=== PATIENT | male | born 1945 | race Caucasian/White ===

== ENCOUNTER 2017-06-10 19:28 | Emergency (ER) | payer MEDICARE ==
[~2017-06-10] VITALS: Ht 167.6 cm; Wt 60.4 kg
[~2017-06-10 19:28] MED LIST: ALBU8HFA PO; ASCO-10 PO; ASPI81TA96 PO; ATOR40TA71 PO; CITA10TA9 PO; GEMF600T3 CORPAK; GLUC100017 PO; IBUP-1985 PO; METO25TA6 PO; MULT-933 PO; NIAC500T23 PO; RANI-366 PO
[2017-06-10 19:35] VITALS: BP 129/74
[2017-06-10 20:02] LABS: BASOPHILS # (AUTO) 0.1 X10'3 (0-0.2); BASOPHILS % (AUTO) 1.8 % (0-1); EOSINOPHILS # (AUTO) 0.3 X10'3 (0-0.9); EOSINOPHILS % (AUTO) 5.3 % (0-6); HEMATOCRIT 41.5 % (42.0-52.0); HEMOGLOBIN 14.3 g/dl (14.0-17.9); LYMPHOCYTES # (AUTO) 1.6 X10'3 (1.1-4.8); LYMPHOCYTES % (AUTO) 26.8 % (21-51); MEAN CORPUSCULAR HEMOGLOBIN 34.3 PG (27.0-31.0); MEAN CORPUSCULAR HGB CONC 34.5 % (33.0-36.5); MEAN CORPUSCULAR VOLUME 99.5 FL (78-98); MEAN PLATELET VOLUME 7.8 FL (7.4-10.4); MONOCYTES # (AUTO) 0.6 X10'3 (0-0.9); MONOCYTES % (AUTO) 11.1 % (2-12); NEUTROPHILS # (AUTO) 3.2 X10'3 (1.8-7.7); PLATELET COUNT 229 X10'3 (140-440); RED BLOOD COUNT 4.17 X10'6 (4.70-6.10); RED CELL DISTRIBUTION WIDTH 13.1 % (11.5-14.5); WHITE BLOOD COUNT 5.8 X10'3 (4.5-11.0)
[2017-06-10] MEDS ORDERED: iohexol 350MG/ML 100ml bottle IV ONE (20:09)
[2017-06-10 20:13] LABS: PARTIAL THROMBOPLASTIN TIME 26 SECONDS (22-32); PROTHROMBIN TIME 10.4 SECONDS (9.0-12.0)
[2017-06-10 20:15] LABS: ALANINE AMINOTRANSFERASE 18 U/L (12-78); ALBUMIN 3.6 G/DL (3.4-5.0); ALKALINE PHOSPHATASE 63 IU/L (46-116); ANION GAP 9 (8-16); ASPARTATE AMINO TRANSFERASE 15 U/L (10-37); BILIRUBIN,TOTAL 0.4 MG/DL (0.1-1.0); BLOOD UREA NITROGEN 13 MG/DL (7-18); CALCIUM 9.4 MG/DL (8.5-10.1); CHLORIDE 104 MMOL/L (99-107); GLUCOSE 80 MG/DL (70-104); POTASSIUM 3.9 MMOL/L (3.5-5.1); SODIUM 141 MMOL/L (135-145); TOTAL CARBON DIOXIDE 28.4 MMOL/L (24-32); TOTAL PROTEIN 7.2 G/DL (6.4-8.2); eGFR 74 ML/MIN
[2017-06-10 22:15] LABS: CLARITY,URINE CLEAR (Clear); GLUCOSE, URINE NEGATIVE (Neg); KETONES,URINE NEGATIVE (Neg); LEUKOCYTE ESTERASE ,URINE NEGATIVE (Neg); NITRITES, URINE NEGATIVE (Neg); OCCULT BLOOD,URINE NEGATIVE (Neg); PROTEIN,URINE NEGATIVE (Neg); UROBILINOGEN,URINE 0.2 E.U/dL (0.2-1.0)
[2017-06-10 22:16] LABS: COLOR,URINE STRAW (Yellow); UA COLLECTION TYPE CLN CATCH MIDSTREAM
== END 2017-06-10 23:06 | disposition home or self-care (01) ==
LOC: ER 19:29
DX: I71.4 Abdominal aortic aneurysm, without rupture (principal); K80.20 Calculus of gallbladder without cholecystitis without obstruction; I25.10 Atherosclerotic heart disease of native coronary artery without angina pectoris; I10 Essential (primary) hypertension; I25.2 Old myocardial infarction; J44.9 Chronic obstructive pulmonary disease, unspecified; Z98.890 Other specified postprocedural states; Z79.82 Long term (current) use of aspirin; Z79.899 Other long term (current) drug therapy
CPT/HCPCS: 36415; 71275; 74174; 80053; 81003; 85025; 85610; 85730; 99285; J7030; Q9967

== ENCOUNTER 2018-01-24 22:15 | Inpatient (IN) | payer MEDICARE, MEDICAID ==
[~2018-01-24] VITALS: Ht 167.6 cm; Wt 57.0 kg
[~2018-01-24 22:15] MED LIST changes: -GEMF600T3 CORPAK; +GEMF600T5 CORPAK
[2018-01-24 23:28] LABS: BASOPHILS % (AUTO) 0.5 % (0-1); EOSINOPHILS # (AUTO) 0.1 X10'3 (0-0.9); HEMATOCRIT 40.1 % (42.0-52.0); HEMOGLOBIN 13.8 g/dl (14.0-17.9); LYMPHOCYTES % (AUTO) 18.5 % (21-51); MEAN CORPUSCULAR HEMOGLOBIN 34.1 PG (27.0-31.0); MEAN CORPUSCULAR HGB CONC 34.4 % (33.0-36.5); MEAN CORPUSCULAR VOLUME 99.1 FL (78-98); MEAN PLATELET VOLUME 8.3 FL (7.4-10.4); MONOCYTES # (AUTO) 0.5 X10'3 (0-0.9); MONOCYTES % (AUTO) 10.4 % (2-12); NEUTROPHILS # (AUTO) 3.6 X10'3 (1.8-7.7); NEUTROPHILS % (AUTO) 68.6 % (42-75); PLATELET COUNT 194 X10'3 (140-440); RED BLOOD COUNT 4.04 X10'6 (4.70-6.10); RED CELL DISTRIBUTION WIDTH 13.4 % (11.5-14.5); WHITE BLOOD COUNT 5.2 X10'3 (4.5-11.0)
[2018-01-24 23:38] LABS: ALANINE AMINOTRANSFERASE 26 U/L (12-78); ALBUMIN 3.6 G/DL (3.4-5.0); ALBUMIN/GLOBULIN RATIO 1.1 (1.1-1.5); ALKALINE PHOSPHATASE 82 IU/L (46-116); ANION GAP 9 (8-16); ASPARTATE AMINO TRANSFERASE 26 U/L (10-37); BILIRUBIN,TOTAL 0.3 MG/DL (0.1-1.0); BLOOD UREA NITROGEN 19 MG/DL (7-18); BUN/CREATININE RATIO 17.9 (5.4-32.0); CALCIUM 8.7 MG/DL (8.5-10.1); CHLORIDE 100 MMOL/L (99-107); CREATININE 1.06 MG/DL (0.60-1.10); GLUCOSE 105 MG/DL (70-104); POTASSIUM 3.1 MMOL/L (3.5-5.1); SODIUM 140 MMOL/L (135-145); TOTAL CARBON DIOXIDE 30.8 MMOL/L (24-32); TOTAL PROTEIN 6.9 G/DL (6.4-8.2); eGFR 69 ML/MIN
[2018-01-24 23:59] LABS: PARTIAL THROMBOPLASTIN TIME 29 SECONDS (22-32); PROTHROMBIN TIME 10.5 SECONDS (9.0-12.0)
[2018-01-25] VITALS (13 sets, daily range): BP systolic 114–144; BP diastolic 60–75
[2018-01-25] MEDS ORDERED: aspirin 325mg tablet PO ONE (00:30)
[2018-01-25] MEDS ORDERED: POTA10TA19 PO (00:57)
[2018-01-25] MEDS ORDERED: CHOL400T14 PO (00:57)
[2018-01-25] MEDS ORDERED: VITA100D6 PO (00:57)
[2018-01-25] MEDS ORDERED: IBUP-1984 PO (00:57)
[2018-01-25] MEDS ORDERED: ASPI-1265 PO (00:57)
[2018-01-25] MEDS ORDERED: OMEG1CAP13 PO (00:57)
[2018-01-25] MEDS ORDERED: ASCO500C15 PO (00:57)
[2018-01-25] MEDS ORDERED: TURM500C7 (00:57)
[2018-01-25] MEDS ORDERED: albuterol 2.5 MG/3 ML nebule NEB PRN (01:25)
[2018-01-25] MEDS ORDERED: acetaminophen 325mg tablet PO PRN (01:25)
[2018-01-25] MEDS ORDERED: mag hydrox/Alum hydrox/simeth 30ml oral suspension PO PRN (01:25)
[2018-01-25] MEDS ORDERED: morphine 2 MG/ML inj. syringe IV PRN ×2 (01:25)
[2018-01-25] MEDS ORDERED: nitroGLYCERIN 1gm ointment UD TP ONE (01:25)
[2018-01-25] MEDS ORDERED: ondansetron/PF 4mg/2ml inj IV PRN (01:25)
[2018-01-25] MEDS ORDERED: magnesium hydroxide 30ml (MOM) UD suspension PO PRN (01:25)
[2018-01-25] MEDS ORDERED: heparin, porcine 5000 units/ml vial SQ SCH (08:00)
[2018-01-25] MEDS ORDERED: famotidine 20mg tablet PO SCH (08:00)
[2018-01-25] MEDS ORDERED: metoprolol tartrate 25mg tablet PO SCH (08:00)
[2018-01-25] MEDS ORDERED: atorvastatin 20mg tablet PO SCH (08:00)
[2018-01-25] MEDS ORDERED: aspirin 325mg tablet PO SCH (08:00)
[2018-01-25] MEDS ORDERED: CITALOpram 10mg tablet PO SCH (08:00)
[2018-01-25] MEDS ORDERED: metoprolol tartrate 1mg/ml inj IV PRN (09:15)
[2018-01-25] MEDS ORDERED: aminophylline 250mg/10ml inj. IV PRN (09:15)
[2018-01-25] MEDS ORDERED: nitroGLYCERIN 0.4mg SUBLingual tab SL PRN (09:15)
[2018-01-25] MEDS ORDERED: regadenoson 0.4mg/5ml syringe IV PRN (09:15)
[2018-01-25] MEDS ORDERED: potassium Cl 20 mEq SR tablet PO STA (12:06)
[2018-01-25 12:46] LABS: ALBUMIN 3.2 G/DL (3.4-5.0); ANION GAP 9 (8-16); BLOOD UREA NITROGEN 18 MG/DL (7-18); CALCIUM 8.5 MG/DL (8.5-10.1); CHLORIDE 103 MMOL/L (99-107); CREATININE 0.82 MG/DL (0.60-1.10); GLUCOSE 91 MG/DL (70-104); POTASSIUM 3.4 MMOL/L (3.5-5.1); SODIUM 139 MMOL/L (135-145); TOTAL CARBON DIOXIDE 27.3 MMOL/L (24-32); eGFR > 90 ML/MIN
[2018-01-25] MEDS ORDERED: aminophylline inj. 10 ML IV ONE (15:02)
[2018-01-25] MEDS ORDERED: regadenoson 0.4mg/5ml syringe IV ONE (15:02)
== END 2018-01-25 18:20 | disposition home or self-care (01) | DRG 303 ==
LOC: ER 22:16 → ED HOLD 01-25 01:22 → PCU 3S 01-25 07:50
PROVIDERS: ADMIT Internal Medicine; ATTEND Family Medicine
PROC: 4A02XM4 Measurement of Cardiac Total Activity, External Approach (ICD-10-PCS; principal; 2018-01-25)
PROC: 3E033HZ Introduction of Radioactive Substance into Peripheral Vein, Percutaneous Approach (ICD-10-PCS; 2018-01-25)
DX: I25.110 Atherosclerotic heart disease of native coronary artery with unstable angina pectoris (principal); I10 Essential (primary) hypertension; E78.00 Pure hypercholesterolemia, unspecified; J44.9 Chronic obstructive pulmonary disease, unspecified; M19.90 Unspecified osteoarthritis, unspecified site; I25.2 Old myocardial infarction; Z90.49 Acquired absence of other specified parts of digestive tract; Z95.1 Presence of aortocoronary bypass graft; Z79.899 Other long term (current) drug therapy; Z79.82 Long term (current) use of aspirin; Z87.11 Personal history of peptic ulcer disease; Z87.891 Personal history of nicotine dependence
CPT/HCPCS: 36415; 71045; 78452; 80048; 80053; 84484; 85025; 85610; 85730; 87070; 93005; 93017; 93306; 99285; A9500; G0378; J0280; J1644

== ENCOUNTER 2018-01-31 16:03 | Inpatient (IN) | payer MEDICARE, MEDICAID ==
[~2018-01-31] VITALS: Ht 167.6 cm; Wt 62.3 kg
[~2018-01-31 16:03] MED LIST changes: -ASCO-10 PO; +ASCO500C15 PO; +ASPI-1265 PO; -ASPI81TA96 PO; +CHOL400T14 PO; -GEMF600T5 CORPAK; +GEMF600T5 PO; +IBUP-1984 PO; -IBUP-1985 PO; +OMEG1CAP13 PO; +POTA10TA19 PO; +TURM500C7; +VITA100D6 PO
[2018-01-31 17:00] LABS: BASOPHILS % (AUTO) 0.5 % (0-1); EOSINOPHILS # (AUTO) 0.2 X10'3 (0-0.9); HEMATOCRIT 43.9 % (42.0-52.0); HEMOGLOBIN 14.9 g/dl (14.0-17.9); LYMPHOCYTES # (AUTO) 0.7 X10'3 (1.1-4.8); LYMPHOCYTES % (AUTO) 9.6 % (21-51); MEAN CORPUSCULAR HEMOGLOBIN 33.5 PG (27.0-31.0); MEAN CORPUSCULAR VOLUME 98.5 FL (78-98); MEAN PLATELET VOLUME 8.2 FL (7.4-10.4); MONOCYTES # (AUTO) 0.3 X10'3 (0-0.9); MONOCYTES % (AUTO) 4.4 % (2-12); NEUTROPHILS # (AUTO) 5.6 X10'3 (1.8-7.7); NEUTROPHILS % (AUTO) 82.5 % (42-75); PLATELET COUNT 253 X10'3 (140-440); RED BLOOD COUNT 4.46 X10'6 (4.70-6.10); RED CELL DISTRIBUTION WIDTH 13.4 % (11.5-14.5); WHITE BLOOD COUNT 6.8 X10'3 (4.5-11.0)
[2018-01-31 17:13] LABS: PARTIAL THROMBOPLASTIN TIME 25 SECONDS (22-32); PROTHROMBIN TIME 10.5 SECONDS (9.0-12.0)
[2018-01-31 17:17] LABS: ALANINE AMINOTRANSFERASE 22 U/L (12-78); ALBUMIN 3.7 G/DL (3.4-5.0); ALBUMIN/GLOBULIN RATIO 0.9 (1.1-1.5); ALKALINE PHOSPHATASE 79 IU/L (46-116); ANION GAP 7 (8-16); ASPARTATE AMINO TRANSFERASE 14 U/L (10-37); BILIRUBIN,TOTAL 0.5 MG/DL (0.1-1.0); BLOOD UREA NITROGEN 16 MG/DL (7-18); BUN/CREATININE RATIO 16.7 (5.4-32.0); CALCIUM 9.2 MG/DL (8.5-10.1); CHLORIDE 100 MMOL/L (99-107); CREATININE 0.96 MG/DL (0.60-1.10); GLUCOSE 165 MG/DL (70-104); POTASSIUM 3.3 MMOL/L (3.5-5.1); SODIUM 139 MMOL/L (135-145); TOTAL CARBON DIOXIDE 31.6 MMOL/L (24-32); TOTAL PROTEIN 7.7 G/DL (6.4-8.2); eGFR 77 ML/MIN
[2018-01-31] MEDS ORDERED: nitroGLYCERIN 0.4mg SUBLingual tab SL PRN (18:35)
[2018-01-31] MEDS ORDERED: aspirin 325mg tablet PO ONE (18:35)
[2018-01-31] MEDS ORDERED: heparin 10,000 units/1 ML INJ IV PRN ×3 (18:40→21:50)
[2018-01-31] MEDS ORDERED: heparin 10,000 units/1 ML INJ IV ONE ×2 (18:40→22:05)
[2018-01-31] MEDS ORDERED: heparin 25,000 UNIT/250ml bag 250 ML IV SCH ×2 (18:40→21:46)
[2018-01-31] MEDS ORDERED: nitroGLYCERIN 1gm ointment UD TP ONE (18:55)
[2018-01-31] MEDS: heparin 25,000 UNIT/250ml bag 250 ML IV SCH (19:10)
[2018-01-31 20:53] LABS: BASOPHILS % (AUTO) 0.5 % (0-1); EOSINOPHILS # (AUTO) 0.2 X10'3 (0-0.9); EOSINOPHILS % (AUTO) 2.9 % (0-6); HEMOGLOBIN 13.9 g/dl (14.0-17.9); LYMPHOCYTES # (AUTO) 1.2 X10'3 (1.1-4.8); LYMPHOCYTES % (AUTO) 15.9 % (21-51); MEAN CORPUSCULAR HEMOGLOBIN 33.4 PG (27.0-31.0); MEAN CORPUSCULAR VOLUME 98.4 FL (78-98); MEAN PLATELET VOLUME 8.7 FL (7.4-10.4); MONOCYTES # (AUTO) 0.5 X10'3 (0-0.9); MONOCYTES % (AUTO) 6.8 % (2-12); NEUTROPHILS # (AUTO) 5.5 X10'3 (1.8-7.7); NEUTROPHILS % (AUTO) 73.9 % (42-75); PLATELET COUNT 248 X10'3 (140-440); RED BLOOD COUNT 4.17 X10'6 (4.70-6.10); RED CELL DISTRIBUTION WIDTH 13.1 % (11.5-14.5); WHITE BLOOD COUNT 7.4 X10'3 (4.5-11.0)
[2018-01-31] MEDS ORDERED: temazepam 15mg capsule PO PRN (21:00)
[2018-01-31] MEDS ORDERED: normal saline 1000ml 1,000 ML IV SCH (21:46)
[2018-01-31] MEDS ORDERED: HYDROcodone/acetaminophen 10/325mg tab PO PRN (21:50)
[2018-01-31] MEDS ORDERED: HYDROmorphone 1 mg/ml syringe IV PRN (21:50)
[2018-01-31] MEDS ORDERED: magnesium hydroxide 30ml (MOM) UD suspension PO PRN (21:50)
[2018-01-31] MEDS ORDERED: mag hydrox/Alum hydrox/simeth 30ml oral suspension PO PRN (21:50)
[2018-01-31] MEDS ORDERED: acetaminophen 325mg tablet PO PRN ×2 (21:50)
[2018-01-31] MEDS ORDERED: bisacodyl 10mg suppository rectal RC PRN (21:50)
[2018-01-31] MEDS ORDERED: diphenhydrAMINE 50 mg/ml inj IV PRN (21:50)
[2018-01-31] MEDS ORDERED: potassium Cl 40MEQ/NS 500ml 500 ML IV PRN ×2 (21:50)
[2018-01-31] MEDS ORDERED: morphine 2 MG/ML inj. syringe IV PRN (21:50)
[2018-01-31] MEDS ORDERED: diphenhydrAMINE 25mg capsule PO PRN (21:50)
[2018-01-31] MEDS ORDERED: potassium Cl 20 mEq SR tablet PO PRN ×2 (21:50)
[2018-01-31] MEDS ORDERED: metoclopramide 5 mg/ml inj IV PRN (21:50)
[2018-01-31] MEDS ORDERED: ondansetron/PF 4mg/2ml inj IV PRN (21:50)
[2018-01-31 22:48] LABS: BASOPHILS % (AUTO) 0.7 % (0-1); EOSINOPHILS # (AUTO) 0.2 X10'3 (0-0.9); EOSINOPHILS % (AUTO) 2.9 % (0-6); HEMATOCRIT 39.9 % (42.0-52.0); HEMOGLOBIN 13.5 g/dl (14.0-17.9); LYMPHOCYTES # (AUTO) 1.4 X10'3 (1.1-4.8); LYMPHOCYTES % (AUTO) 21.1 % (21-51); MEAN CORPUSCULAR HEMOGLOBIN 33.5 PG (27.0-31.0); MEAN CORPUSCULAR HGB CONC 33.9 % (33.0-36.5); MEAN CORPUSCULAR VOLUME 98.8 FL (78-98); MEAN PLATELET VOLUME 8.3 FL (7.4-10.4); MONOCYTES # (AUTO) 0.5 X10'3 (0-0.9); MONOCYTES % (AUTO) 6.9 % (2-12); NEUTROPHILS # (AUTO) 4.5 X10'3 (1.8-7.7); NEUTROPHILS % (AUTO) 68.4 % (42-75); PLATELET COUNT 232 X10'3 (140-440); RED BLOOD COUNT 4.04 X10'6 (4.70-6.10); RED CELL DISTRIBUTION WIDTH 12.9 % (11.5-14.5); WHITE BLOOD COUNT 6.5 X10'3 (4.5-11.0)
[2018-01-31 22:51] LABS: HEMOGLOBIN A1C 5.8 % (4.5-6.2)
[2018-01-31 23:03] LABS: MAGNESIUM 1.7 MG/DL (1.5-2.4)
[2018-01-31 23:07] LABS: INR 1.1 INR; PARTIAL THROMBOPLASTIN TIME 64 SECONDS (22-32); PROTHROMBIN TIME 10.8 SECONDS (9.0-12.0)
[2018-02-01] VITALS (8 sets, daily range): BP systolic 99–133; BP diastolic 55–95
[2018-02-01 07:39] LABS: BASOPHILS % (AUTO) 0.5 % (0-1); EOSINOPHILS # (AUTO) 0.2 X10'3 (0-0.9); EOSINOPHILS % (AUTO) 2.8 % (0-6); HEMATOCRIT 38.3 % (42.0-52.0); LYMPHOCYTES % (AUTO) 17.5 % (21-51); MEAN CORPUSCULAR HEMOGLOBIN 33.6 PG (27.0-31.0); MEAN CORPUSCULAR VOLUME 98.7 FL (78-98); MONOCYTES # (AUTO) 0.4 X10'3 (0-0.9); MONOCYTES % (AUTO) 6.9 % (2-12); NEUTROPHILS # (AUTO) 4.3 X10'3 (1.8-7.7); NEUTROPHILS % (AUTO) 72.3 % (42-75); PLATELET COUNT 230 X10'3 (140-440); RED BLOOD COUNT 3.88 X10'6 (4.70-6.10); RED CELL DISTRIBUTION WIDTH 13.2 % (11.5-14.5); WHITE BLOOD COUNT 5.9 X10'3 (4.5-11.0)
[2018-02-01 07:57] LABS: ALANINE AMINOTRANSFERASE 18 U/L (12-78); ALBUMIN/GLOBULIN RATIO 0.9 (1.1-1.5); ALKALINE PHOSPHATASE 62 IU/L (46-116); ANION GAP 9 (8-16); ASPARTATE AMINO TRANSFERASE 13 U/L (10-37); BILIRUBIN,TOTAL 0.4 MG/DL (0.1-1.0); BLOOD UREA NITROGEN 19 MG/DL (7-18); BUN/CREATININE RATIO 24.7 (5.4-32.0); CALCIUM 8.2 MG/DL (8.5-10.1); CHLORIDE 105 MMOL/L (99-107); CHOL/HDL RATIO 3.7 (0.00-4.99); CHOLESTEROL 123 MG/DL (0-200); CREATININE 0.77 MG/DL (0.60-1.10); GLUCOSE 101 MG/DL (70-104); HDL CHOLESTEROL 33 MG/DL (35-60); LDL CHOLESTEROL 74 MG/DL (50-100); POTASSIUM 3.3 MMOL/L (3.5-5.1); SODIUM 141 MMOL/L (135-145); TOTAL CARBON DIOXIDE 27.4 MMOL/L (24-32); TOTAL PROTEIN 6.2 G/DL (6.4-8.2); TRIGLYCERIDES 93 MG/DL (20-135); eGFR > 90 ML/MIN
[2018-02-01] MEDS: metoprolol tartrate 25mg tablet PO SCH ×2 (08:00→20:00)
[2018-02-01] MEDS: cholecalciferol (vitamin D) 400 unit tablet PO SCH (08:00)
[2018-02-01] MEDS: K and/or MAG REPLACEMENT MC SCH (08:00)
[2018-02-01] MEDS: heparin 25,000 UNIT/250ml bag 250 ML IV SCH (08:26)
[2018-02-01] MEDS: multivitamins, therapeutics tablet PO SCH (08:41)
[2018-02-01] MEDS: aspirin 81mg tab.chew PO SCH (08:42)
[2018-02-01] MEDS: ascorbic acid 500mg tablet PO SCH (08:42)
[2018-02-01] MEDS: atorvastatin 20mg tablet PO SCH (08:42)
[2018-02-01] MEDS: famotidine 20mg tablet PO SCH ×2 (08:43→20:59)
[2018-02-01] MEDS: lisinopril 10 MG tablet PO SCH (08:44)
[2018-02-01] MEDS: docusate sod 100mg capsule PO SCH ×2 (08:44→20:59)
[2018-02-01] MEDS: CITALOpram 10mg tablet PO SCH (10:26)
[2018-02-01] MEDS: gemfibrozil 600mg tablet CORPAK SCH ×2 (10:53→20:59)
[2018-02-01] MEDS: OMEGA-3/DHA/EPA/FISH OIL 1 EACH CAPSULE.DR PO SCH ×2 (10:54→20:59)
[2018-02-01] MEDS: nitroGLYCERIN 0.1mg/hour patch TD SCH (10:56)
[2018-02-01] MEDS ORDERED: iohexol 350 MG/ML 50ML vial IV ONE ×3 (13:30→14:44)
[2018-02-01] MEDS ORDERED: midazolam 2 mg/2 ml injection ONE (13:30)
[2018-02-01] MEDS ORDERED: LIDOcaine 1% (10mg/ml)w/preservative injection 20ml MDV ONE (13:30)
[2018-02-01] MEDS ORDERED: iohexol 350MG/ML 100ml bottle IV ONE (13:30)
[2018-02-01] MEDS ORDERED: fentaNYL/PF 50MCG/1 ML 2ML syringe ONE (13:30)
[2018-02-01] MEDS ORDERED: nitroGLYCERIN-Tridil 50MG/D5W 250 ML IV ONE (14:14)
[2018-02-01] MEDS ORDERED: verapamil 2.5 mg/ml inj IV ONE (14:15)
[2018-02-01] MEDS ORDERED: heparin 1,000unit/ml 10ml vial 10 ML ONE (14:15)
[2018-02-01] MEDS ORDERED: HYDROcodone/acetaminophen 5mg/325mg tablet PO PRN (20:30)
[2018-02-01] MEDS ORDERED: proCHLORperazine 10 MG/2 ml inj IV PRN (20:35)
[2018-02-01] MEDS ORDERED: OXAZEpam 15mg capsule PO PRN (20:35)
[2018-02-01] MEDS: enoxaparin 40mg/0.4ml syringe SQ SCH (20:58)
[2018-02-01] MEDS: vitamin E 400 unit capsule PO SCH (20:59)
[2018-02-02] VITALS (14 sets, daily range): BP systolic 82–146; BP diastolic 25–76
[2018-02-02] MEDS: nitroGLYCERIN 0.4mg SUBLingual tab SL PRN ×6 (02:24→21:21)
[2018-02-02 05:10] LABS: BASOPHILS # (AUTO) 0.1 X10'3 (0-0.2); BASOPHILS % (AUTO) 0.6 % (0-1); EOSINOPHILS # (AUTO) 0.2 X10'3 (0-0.9); EOSINOPHILS % (AUTO) 2.2 % (0-6); HEMATOCRIT 36.8 % (42.0-52.0); HEMOGLOBIN 12.6 g/dl (14.0-17.9); LYMPHOCYTES # (AUTO) 0.8 X10'3 (1.1-4.8); LYMPHOCYTES % (AUTO) 8.9 % (21-51); MEAN CORPUSCULAR HEMOGLOBIN 33.7 PG (27.0-31.0); MEAN CORPUSCULAR HGB CONC 34.3 % (33.0-36.5); MEAN CORPUSCULAR VOLUME 98.1 FL (78-98); MONOCYTES # (AUTO) 0.6 X10'3 (0-0.9); MONOCYTES % (AUTO) 7.1 % (2-12); NEUTROPHILS % (AUTO) 81.2 % (42-75); PLATELET COUNT 235 X10'3 (140-440); RED BLOOD COUNT 3.75 X10'6 (4.70-6.10); RED CELL DISTRIBUTION WIDTH 13.2 % (11.5-14.5); WHITE BLOOD COUNT 8.6 X10'3 (4.5-11.0)
[2018-02-02 05:25] LABS: ALANINE AMINOTRANSFERASE 16 U/L (12-78); ALBUMIN 2.9 G/DL (3.4-5.0); ALKALINE PHOSPHATASE 67 IU/L (46-116); ANION GAP 10 (8-16); ASPARTATE AMINO TRANSFERASE 16 U/L (10-37); BILIRUBIN,TOTAL 0.5 MG/DL (0.1-1.0); BLOOD UREA NITROGEN 13 MG/DL (7-18); BUN/CREATININE RATIO 17.8 (5.4-32.0); CALCIUM 8.3 MG/DL (8.5-10.1); CHLORIDE 104 MMOL/L (99-107); CREATININE 0.73 MG/DL (0.60-1.10); GLUCOSE 87 MG/DL (70-104); POTASSIUM 3.3 MMOL/L (3.5-5.1); SODIUM 140 MMOL/L (135-145); TOTAL CARBON DIOXIDE 26.5 MMOL/L (24-32); TOTAL PROTEIN 5.9 G/DL (6.4-8.2); eGFR > 90 ML/MIN
[2018-02-02] MEDS: ascorbic acid 500mg tablet PO SCH (07:30)
[2018-02-02] MEDS: CITALOpram 10mg tablet PO SCH (07:31)
[2018-02-02] MEDS: cholecalciferol (vitamin D) 400 unit tablet PO SCH (07:32)
[2018-02-02] MEDS: atorvastatin 20mg tablet PO SCH (07:33)
[2018-02-02] MEDS: enoxaparin 40mg/0.4ml syringe SQ SCH (07:34)
[2018-02-02] MEDS: gemfibrozil 600mg tablet CORPAK SCH ×2 (07:35→20:54)
[2018-02-02] MEDS: docusate sod 100mg capsule PO SCH ×2 (07:35→20:54)
[2018-02-02] MEDS: famotidine 20mg tablet PO SCH ×2 (07:35→20:54)
[2018-02-02] MEDS: OMEGA-3/DHA/EPA/FISH OIL 1 EACH CAPSULE.DR PO SCH ×2 (07:35→20:54)
[2018-02-02] MEDS: aspirin 81mg tab.chew PO SCH (07:35)
[2018-02-02] MEDS: nitroGLYCERIN 0.1mg/hour patch TD SCH (07:36)
[2018-02-02] MEDS: lisinopril 10 MG tablet PO SCH (07:40)
[2018-02-02] MEDS: multivitamins, therapeutics tablet PO SCH (08:00)
[2018-02-02] MEDS: metoprolol tartrate 25mg tablet PO SCH ×2 (08:00→20:54)
[2018-02-02] MEDS: K and/or MAG REPLACEMENT MC SCH (08:00)
[2018-02-02] MEDS ORDERED: heparin 25,000 UNIT/250ml bag 250 ML IV SCH (14:30)
[2018-02-02] MEDS ORDERED: heparin 10,000 units/1 ML INJ IV PRN (14:30)
[2018-02-02] MEDS ORDERED: normal saline 1000ml 1,000 ML IV SCH (14:30)
[2018-02-02] MEDS: potassium Cl 20mEq in NS 1,000 ML IV SCH (20:00)
[2018-02-02] MEDS: vitamin E 400 unit capsule PO SCH (20:54)
[2018-02-03] VITALS (24 sets, daily range): BP systolic 91–142; BP diastolic 48–74
[2018-02-03 02:10] LABS: ALANINE AMINOTRANSFERASE 18 U/L (12-78); ALBUMIN 2.9 G/DL (3.4-5.0); ALBUMIN/GLOBULIN RATIO 0.9 (1.1-1.5); ALKALINE PHOSPHATASE 73 IU/L (46-116); ANION GAP 10 (8-16); ASPARTATE AMINO TRANSFERASE 16 U/L (10-37); BILIRUBIN,TOTAL 0.5 MG/DL (0.1-1.0); BLOOD UREA NITROGEN 12 MG/DL (7-18); BUN/CREATININE RATIO 16.7 (5.4-32.0); CALCIUM 8.1 MG/DL (8.5-10.1); CHLORIDE 102 MMOL/L (99-107); CREATININE 0.72 MG/DL (0.60-1.10); GLUCOSE 82 MG/DL (70-104); POTASSIUM 3.6 MMOL/L (3.5-5.1); SODIUM 138 MMOL/L (135-145); TOTAL CARBON DIOXIDE 26.5 MMOL/L (24-32); TOTAL PROTEIN 6.1 G/DL (6.4-8.2); eGFR > 90 ML/MIN
[2018-02-03 02:51] LABS: BASOPHILS % (AUTO) 0.7 % (0-1); EOSINOPHILS # (AUTO) 0.1 X10'3 (0-0.9); EOSINOPHILS % (AUTO) 1.7 % (0-6); HEMATOCRIT 36.8 % (42.0-52.0); HEMOGLOBIN 12.4 g/dl (14.0-17.9); LYMPHOCYTES # (AUTO) 0.7 X10'3 (1.1-4.8); MEAN CORPUSCULAR HEMOGLOBIN 33.3 PG (27.0-31.0); MEAN CORPUSCULAR HGB CONC 33.6 % (33.0-36.5); MEAN CORPUSCULAR VOLUME 99.2 FL (78-98); MEAN PLATELET VOLUME 8.7 FL (7.4-10.4); MONOCYTES # (AUTO) 0.5 X10'3 (0-0.9); MONOCYTES % (AUTO) 7.2 % (2-12); NEUTROPHILS # (AUTO) 5.6 X10'3 (1.8-7.7); NEUTROPHILS % (AUTO) 80.4 % (42-75); PLATELET COUNT 233 X10'3 (140-440); RED BLOOD COUNT 3.71 X10'6 (4.70-6.10); RED CELL DISTRIBUTION WIDTH 13.3 % (11.5-14.5)
[2018-02-03] MEDS: nitroGLYCERIN 0.4mg SUBLingual tab SL PRN ×2 (06:01→06:10)
[2018-02-03] MEDS: metoprolol tartrate 25mg tablet PO SCH ×2 (07:09→20:00)
[2018-02-03] MEDS: famotidine 20mg tablet PO SCH ×2 (07:09→20:38)
[2018-02-03] MEDS: atorvastatin 20mg tablet PO SCH (07:09)
[2018-02-03] MEDS: aspirin 81mg tab.chew PO SCH (07:10)
[2018-02-03] MEDS: lisinopril 10 MG tablet PO SCH (07:10)
[2018-02-03] MEDS: potassium Cl 20mEq in NS 1,000 ML IV SCH ×2 (07:30→19:40)
[2018-02-03] MEDS: ascorbic acid 500mg tablet PO SCH (08:00)
[2018-02-03] MEDS: K and/or MAG REPLACEMENT MC SCH (08:00)
[2018-02-03] MEDS: docusate sod 100mg capsule PO SCH ×2 (08:00→20:00)
[2018-02-03] MEDS: CITALOpram 10mg tablet PO SCH (08:00)
[2018-02-03] MEDS: cholecalciferol (vitamin D) 400 unit tablet PO SCH (08:00)
[2018-02-03] MEDS: gemfibrozil 600mg tablet CORPAK SCH ×2 (08:00→20:36)
[2018-02-03] MEDS: nitroGLYCERIN 0.1mg/hour patch TD SCH (08:00)
[2018-02-03] MEDS: OMEGA-3/DHA/EPA/FISH OIL 1 EACH CAPSULE.DR PO SCH ×2 (08:00→20:36)
[2018-02-03] MEDS: multivitamins, therapeutics tablet PO SCH (08:00)
[2018-02-03] MEDS ORDERED: nitroGLYCERIN-Tridil 50MG/D5W 250 ML IV ONE (08:37)
[2018-02-03] MEDS ORDERED: fentaNYL/PF 50MCG/1 ML 2ML syringe ONE (08:37)
[2018-02-03] MEDS ORDERED: midazolam 2 mg/2 ml injection ONE (08:37)
[2018-02-03] MEDS ORDERED: verapamil 2.5 mg/ml inj IV ONE (08:37)
[2018-02-03] MEDS ORDERED: iohexol 350 MG/1 ML 200ml bottle ONE (08:38)
[2018-02-03] MEDS ORDERED: heparin 1,000unit/ml 10ml vial 10 ML ONE ×2 (08:38→10:46)
[2018-02-03] MEDS ORDERED: LIDOcaine 1% (10mg/ml)w/preservative injection 20ml MDV ONE (09:17)
[2018-02-03] MEDS ORDERED: heparin 1,000 UNITS/NS 500ml 500 ML ONE (10:19)
[2018-02-03] MEDS ORDERED: iohexol 350 MG/ML 50ML vial IV ONE ×2 (11:10→11:27)
[2018-02-03] MEDS ORDERED: iohexol 350MG/ML 100ml bottle IV ONE (11:27)
[2018-02-03] MEDS ORDERED: clopidogrel 300mg tablet ONE (11:44)
[2018-02-03] MEDS ORDERED: normal saline 1000ml 1,000 ML IV SCH (13:10)
[2018-02-03] MEDS ORDERED: cyclobenzaprine 10mg tablet PO PRN (13:25)
[2018-02-03] MEDS ORDERED: HYDROcodone/acetaminophen 10/325mg tab PO SCH (13:25)
[2018-02-03] MEDS ORDERED: HYDROcodone/acetaminophen 10/325mg tab PO PRN ×3 (13:25→14:06)
[2018-02-03] MEDS: vitamin E 400 unit capsule PO SCH (20:35)
[2018-02-03] MEDS ORDERED: magnesium hydroxide 30ml (MOM) UD suspension PO SCH (21:00)
[2018-02-04] VITALS (12 sets, daily range): BP systolic 83–142; BP diastolic 48–67
[2018-02-04 04:21] LABS: BASOPHILS % (AUTO) 0.3 % (0-1); EOSINOPHILS # (AUTO) 0.1 X10'3 (0-0.9); EOSINOPHILS % (AUTO) 1.2 % (0-6); HEMATOCRIT 35.2 % (42.0-52.0); HEMOGLOBIN 11.9 g/dl (14.0-17.9); LYMPHOCYTES # (AUTO) 0.6 X10'3 (1.1-4.8); LYMPHOCYTES % (AUTO) 9.6 % (21-51); MEAN CORPUSCULAR HEMOGLOBIN 33.3 PG (27.0-31.0); MEAN CORPUSCULAR HGB CONC 33.8 % (33.0-36.5); MEAN CORPUSCULAR VOLUME 98.6 FL (78-98); MEAN PLATELET VOLUME 8.2 FL (7.4-10.4); MONOCYTES # (AUTO) 0.7 X10'3 (0-0.9); MONOCYTES % (AUTO) 11.8 % (2-12); NEUTROPHILS # (AUTO) 4.8 X10'3 (1.8-7.7); NEUTROPHILS % (AUTO) 77.1 % (42-75); PLATELET COUNT 200 X10'3 (140-440); RED BLOOD COUNT 3.57 X10'6 (4.70-6.10); RED CELL DISTRIBUTION WIDTH 13.3 % (11.5-14.5); WHITE BLOOD COUNT 6.3 X10'3 (4.5-11.0)
[2018-02-04 04:32] LABS: ALANINE AMINOTRANSFERASE 21 U/L (12-78); ALBUMIN 2.6 G/DL (3.4-5.0); ALBUMIN/GLOBULIN RATIO 0.8 (1.1-1.5); ALKALINE PHOSPHATASE 66 IU/L (46-116); ANION GAP 9 (8-16); ASPARTATE AMINO TRANSFERASE 23 U/L (10-37); BILIRUBIN,TOTAL 0.3 MG/DL (0.1-1.0); BLOOD UREA NITROGEN 12 MG/DL (7-18); BUN/CREATININE RATIO 15.2 (5.4-32.0); CHLORIDE 102 MMOL/L (99-107); CREATININE 0.79 MG/DL (0.60-1.10); GLUCOSE 81 MG/DL (70-104); POTASSIUM 3.5 MMOL/L (3.5-5.1); SODIUM 136 MMOL/L (135-145); TOTAL CARBON DIOXIDE 25.3 MMOL/L (24-32); TOTAL PROTEIN 5.7 G/DL (6.4-8.2); eGFR > 90 ML/MIN
[2018-02-04] MEDS: metoprolol tartrate 25mg tablet PO SCH (07:57)
[2018-02-04] MEDS: cholecalciferol (vitamin D) 400 unit tablet PO SCH (07:57)
[2018-02-04] MEDS: aspirin 81mg tab.chew PO SCH (07:57)
[2018-02-04] MEDS: OMEGA-3/DHA/EPA/FISH OIL 1 EACH CAPSULE.DR PO SCH (07:58)
[2018-02-04] MEDS: docusate sod 100mg capsule PO SCH (07:58)
[2018-02-04] MEDS: famotidine 20mg tablet PO SCH (07:58)
[2018-02-04] MEDS: gemfibrozil 600mg tablet CORPAK SCH (07:58)
[2018-02-04] MEDS: multivitamins, therapeutics tablet PO SCH (07:58)
[2018-02-04] MEDS: lisinopril 10 MG tablet PO SCH (07:59)
[2018-02-04] MEDS: CITALOpram 10mg tablet PO SCH (07:59)
[2018-02-04] MEDS: ascorbic acid 500mg tablet PO SCH (07:59)
[2018-02-04] MEDS ORDERED: clopidogrel 75mg tablet PO SCH (08:00)
[2018-02-04] MEDS: K and/or MAG REPLACEMENT MC SCH (08:00)
[2018-02-04] MEDS ORDERED: atorvastatin 20mg tablet PO SCH (08:00)
[2018-02-04] MEDS: nitroGLYCERIN 0.1mg/hour patch TD SCH (08:00)
[2018-02-04] MEDS: potassium Cl 20mEq in NS 1,000 ML IV SCH (09:33)
[2018-02-04] MEDS ORDERED: LISI10TA4 PO (10:36)
[2018-02-04] MEDS ORDERED: NITR0.4T51 SL (10:36)
[2018-02-04] MEDS ORDERED: CLOP75TA35 PO (10:36)
[2018-02-04] MEDS ORDERED: NITR1PAT25 TD (10:36)
[2018-02-04] MEDS ORDERED: nitroGLYCERIN 0.1mg/hour patch TD SCH (11:44)
== END 2018-02-04 15:39 | disposition home or self-care (01) | DRG 246 ==
LOC: ER 16:04 → ED HOLD 21:46 → PCU 3S 02-01 09:55 → CICU 2S 02-03 12:41
PROVIDERS: ADMIT Family Medicine; ATTEND Internal Medicine
PROC: 4A023N7 Measurement of Cardiac Sampling and Pressure, Left Heart, Percutaneous Approach (ICD-10-PCS; 2018-02-01)
PROC: B2111ZZ Fluoroscopy of Multiple Coronary Arteries using Low Osmolar Contrast (ICD-10-PCS; 2018-02-01)
PROC: B2151ZZ Fluoroscopy of Left Heart using Low Osmolar Contrast (ICD-10-PCS; 2018-02-01)
PROC: B3101ZZ Fluoroscopy of Thoracic Aorta using Low Osmolar Contrast (ICD-10-PCS; 2018-02-01)
PROC: B2131ZZ Fluoroscopy of Multiple Coronary Artery Bypass Grafts using Low Osmolar Contrast (ICD-10-PCS; 2018-02-01)
PROC: B2181ZZ Fluoroscopy of Left Internal Mammary Bypass Graft using Low Osmolar Contrast (ICD-10-PCS; 2018-02-01)
PROC: B41G1ZZ Fluoroscopy of Left Lower Extremity Arteries using Low Osmolar Contrast (ICD-10-PCS; 2018-02-01)
PROC: B41F1ZZ Fluoroscopy of Right Lower Extremity Arteries using Low Osmolar Contrast (ICD-10-PCS; 2018-02-01)
PROC: B2171ZZ Fluoroscopy of Right Internal Mammary Bypass Graft using Low Osmolar Contrast (ICD-10-PCS; 2018-02-01)
PROC: 027135Z Dilation of Coronary Artery, Two Arteries with Two Drug-eluting Intraluminal Devices, Percutaneous Approach (ICD-10-PCS; principal; 2018-02-03)
DX: T82.857A Stenosis of other cardiac prosthetic devices, implants and grafts, initial encounter (principal); I21.4 Non-ST elevation (NSTEMI) myocardial infarction; I74.5 Embolism and thrombosis of iliac artery; I74.3 Embolism and thrombosis of arteries of the lower extremities; I25.710 Atherosclerosis of autologous vein coronary artery bypass graft(s) with unstable angina pectoris; E78.5 Hyperlipidemia, unspecified; E87.6 Hypokalemia; F17.210 Nicotine dependence, cigarettes, uncomplicated; I11.0 Hypertensive heart disease with heart failure; I50.9 Heart failure, unspecified; I25.2 Old myocardial infarction; I71.4 Abdominal aortic aneurysm, without rupture; I73.9 Peripheral vascular disease, unspecified; J44.9 Chronic obstructive pulmonary disease, unspecified; M19.90 Unspecified osteoarthritis, unspecified site; F32.9 Major depressive disorder, single episode, unspecified; G89.29 Other chronic pain; Y83.2 Surgical operation with anastomosis, bypass or graft as the cause of abnormal reaction of the patient, or of later complication, without mention of misadventure at the time of the procedure; Z90.49 Acquired absence of other specified parts of digestive tract; Z79.899 Other long term (current) drug therapy; Z87.11 Personal history of peptic ulcer disease; Z82.49 Family history of ischemic heart disease and other diseases of the circulatory system
CPT/HCPCS: 93459; 93567; 96365; 99285; C9604; 36415; 71045; 80053; 80061; 83036; 83735; 83880; 84100; 84484; 85025; 85347; 85610; 85730; 87070; 93005; 93308; 93925; 93978; 99152; 99153; A4620; A6257; C1725; C1769; C1874; C1887; C1894; G0378; J1644; J1650; J2001; J2250; J3010; J3480; J3490; J7030; Q9967

== ENCOUNTER 2018-02-06 18:37 | Inpatient (IN) | payer MEDICARE, MEDICAID ==
[~2018-02-06] VITALS: Ht 167.6 cm; Wt 58.0 kg
[~2018-02-06 18:37] MED LIST changes: +CLOP75TA35 PO; -GLUC100017 PO; -IBUP-1984 PO; +LISI10TA4 PO; -NIAC500T23 PO; +NITR0.4T51 SL; +NITR1PAT25 TD; -POTA10TA19 PO; -TURM500C7; -VITA100D6 PO
[2018-02-06] MEDS ORDERED: normal saline 1000ML IV soln IV ONE (18:50)
[2018-02-06] MEDS ORDERED: tranexamic acid 100mg/ml inj. IV ONE (18:55)
[2018-02-06] MEDS ORDERED: pantoprazole 40 MG vial IV ONE (19:00)
[2018-02-06] MEDS: pantoprazole 40MG/NS 100ML BAG 100 ML IV SCH ×2 (19:00→21:00)
[2018-02-06 19:15] LABS: BASOPHILS % (AUTO) 0.2 % (0-1); EOSINOPHILS # (AUTO) 0.1 X10'3 (0-0.9); EOSINOPHILS % (AUTO) 1.1 % (0-6); HEMATOCRIT 33.7 % (42.0-52.0); HEMOGLOBIN 11.2 g/dl (14.0-17.9); LYMPHOCYTES # (AUTO) 0.5 X10'3 (1.1-4.8); LYMPHOCYTES % (AUTO) 10.4 % (21-51); MEAN CORPUSCULAR HEMOGLOBIN 33.1 PG (27.0-31.0); MEAN CORPUSCULAR HGB CONC 33.3 % (33.0-36.5); MEAN CORPUSCULAR VOLUME 99.4 FL (78-98); MEAN PLATELET VOLUME 8.1 FL (7.4-10.4); MONOCYTES # (AUTO) 0.4 X10'3 (0-0.9); MONOCYTES % (AUTO) 8.3 % (2-12); NEUTROPHILS # (AUTO) 3.9 X10'3 (1.8-7.7); PLATELET COUNT 214 X10'3 (140-440); RED BLOOD COUNT 3.39 X10'6 (4.70-6.10); RED CELL DISTRIBUTION WIDTH 13.1 % (11.5-14.5); WHITE BLOOD COUNT 4.9 X10'3 (4.5-11.0)
[2018-02-06 19:30] LABS: ALANINE AMINOTRANSFERASE 30 U/L (12-78); ALBUMIN 3.1 G/DL (3.4-5.0); ALBUMIN/GLOBULIN RATIO 0.9 (1.1-1.5); ALKALINE PHOSPHATASE 66 IU/L (46-116); ANION GAP 13 (8-16); ASPARTATE AMINO TRANSFERASE 30 U/L (10-37); BILIRUBIN,TOTAL 0.5 MG/DL (0.1-1.0); BLOOD UREA NITROGEN 17 MG/DL (7-18); BUN/CREATININE RATIO 19.3 (5.4-32.0); CALCIUM 8.4 MG/DL (8.5-10.1); CHLORIDE 99 MMOL/L (99-107); CREATININE 0.88 MG/DL (0.60-1.10); GLUCOSE 105 MG/DL (70-104); POTASSIUM 3.1 MMOL/L (3.5-5.1); SODIUM 137 MMOL/L (135-145); TOTAL CARBON DIOXIDE 25.4 MMOL/L (24-32); TOTAL PROTEIN 6.7 G/DL (6.4-8.2); eGFR 85 ML/MIN
[2018-02-06 19:48] LABS: INR 1.1 INR; PARTIAL THROMBOPLASTIN TIME 30 SECONDS (22-32)
[2018-02-06 20:55] LABS: OCCULT BLOOD STOOL POSITIVE (Neg)
[2018-02-06] MEDS ORDERED: temazepam 15mg capsule PO PRN (21:00)
[2018-02-06] MEDS ORDERED: acetaminophen 325mg tablet PO PRN ×2 (21:05)
[2018-02-06] MEDS ORDERED: HYDROmorphone 1 mg/ml syringe IV PRN (21:05)
[2018-02-06] MEDS ORDERED: ondansetron/PF 4mg/2ml inj IV PRN (21:05)
[2018-02-06] MEDS ORDERED: acetaminophen 650mg rectal suppository RC PRN (21:05)
[2018-02-06] MEDS ORDERED: HYDROcodone/acetaminophen 5mg/325mg tablet PO PRN (21:05)
[2018-02-06] MEDS ORDERED: mag hydrox/Alum hydrox/simeth 30ml oral suspension PO PRN (21:05)
[2018-02-06] MEDS ORDERED: magnesium hydroxide 30ml (MOM) UD suspension PO PRN (21:05)
[2018-02-06] MEDS ORDERED: potassium Cl 20 mEq SR tablet PO PRN (21:05)
[2018-02-06] MEDS ORDERED: bisacodyl 10mg suppository rectal RC PRN (21:05)
[2018-02-06] MEDS ORDERED: morphine 4 MG/ML inj SYRINge IV PRN (21:05)
[2018-02-06] MEDS ORDERED: diphenhydrAMINE 25mg capsule PO PRN (21:05)
[2018-02-06] MEDS ORDERED: diphenhydrAMINE 50 mg/ml inj IV PRN (21:05)
[2018-02-06] MEDS ORDERED: metoclopramide 5 mg/ml inj IV PRN (21:05)
[2018-02-06] MEDS ORDERED: NITR1PAT25 TD (21:35)
[2018-02-06] MEDS ORDERED: LISI-600 PO (21:35)
[2018-02-06] MEDS ORDERED: CLOP75TA35 PO (21:35)
[2018-02-06] MEDS ORDERED: NITR0.4T51 SL (21:35)
--- NOTE | 2018-02-06 22:21 | NUR ---
ATTEMPTED AGAIN TO CALL REPORT, NURSE UNAVAILBLE X 3 NOW. WILL CALL BACK IN 5 MIN.
[2018-02-06 22:31] LABS: MAGNESIUM 1.4 MG/DL (1.5-2.4)
--- NOTE | 2018-02-06 22:50 | NUR ---
Patient arrived from ER via gurney accompanied by REFERRAL SPECIALIST. Patient drowsy but arousable, oriented, and comfortable. Spouse at bedside. Tele monitor attached, vitals stable.
[2018-02-06 23:00] VITALS: BP 135/61
[2018-02-06 23:55] VITALS: BP 113/55
[2018-02-07] VITALS (17 sets, daily range): BP systolic 96–140; BP diastolic 48–69
[2018-02-07] MEDS: potassium Cl 20mEq in NS 1,000 ML IV SCH ×4 (00:02→22:47)
[2018-02-07] MEDS: potassium Cl 20 mEq SR tablet PO PRN ×3 (00:35→09:04)
[2018-02-07] MEDS ORDERED: pantoprazole 40MG/NS 100ML BAG 100 ML IV SCH (01:00)
[2018-02-07] MEDS: pantoprazole 40MG/NS 100ML BAG 100 ML IV SCH ×5 (01:00→22:50)
[2018-02-07] MEDS ORDERED: magnesium Cl slow-release 64mg tablet PO PRN (03:00)
[2018-02-07] MEDS ORDERED: magnesium 4gm in 100ml NS 100 ML IV PRN (03:00)
--- NOTE | 2018-02-07 03:23 | NUR ---
Paged Dr. Regan: "RE: Huan Devine, PCU [id number]. Chills, rising temp (100.3 F), stopped blood transfusion. Thanks, Huan PCU"
--- NOTE | 2018-02-07 03:35 | NUR ---
Dr. Regan called back regarding blood transfusion and he ordered give one time dose now of Benadryl 50mg IV, Pepcid 20 mg IV, and Solumedrol 100mg IV and draw CBC now.
[2018-02-07] MEDS ORDERED: methylPREDNISolone sod succ 125mg/2ml vial IV ONE (03:40)
[2018-02-07] MEDS ORDERED: diphenhydrAMINE 50 mg/ml inj IV ONE (03:40)
[2018-02-07] MEDS ORDERED: famotidine/PF 10 mg/ml inj IV ONE (03:40)
--- NOTE | 2018-02-07 04:00 | NUR ---
Patient vitals stable. Temperature decreased to 99.3 F from 100.3 F. Patient still has some chills and is warm to touch. Continuing to monitor.
[2018-02-07 05:22] LABS: CLARITY,URINE CLEAR (Clear); COLOR,URINE YELLOW (Yellow); GLUCOSE, URINE NEGATIVE (Neg); KETONES,URINE TRACE mg/dl (Neg); LEUKOCYTE ESTERASE ,URINE NEGATIVE (Neg); NITRITES, URINE NEGATIVE (Neg); OCCULT BLOOD,URINE NEGATIVE (Neg); PROTEIN,URINE NEGATIVE (Neg); UROBILINOGEN,URINE 0.2 E.U/dL (0.2-1.0)
[2018-02-07 05:29] LABS: UA COLLECTION TYPE NON-SPECIFIED
--- NOTE | 2018-02-07 06:16 | NUR ---
Patient in room PCU 3024. I have received report from Huan TUBBS and had the opportunity to ask questions and assume patient care. Pt awake and alert, pt reports no pain or chills at time of transfer. Will continue to monitor.
--- NOTE | 2018-02-07 06:20 | NUR ---
Problems reprioritized. Patient report given, questions answered & plan of care reviewed with SULY Vargas.
[2018-02-07] MEDS: docusate sod 100mg capsule PO SCH ×2 (08:00→20:00)
[2018-02-07 08:55] LABS: BASOPHILS % (AUTO) 0.1 % (0-1); EOSINOPHILS % (AUTO) 0.3 % (0-6); HEMATOCRIT 29.1 % (42.0-52.0); LYMPHOCYTES # (AUTO) 0.1 X10'3 (1.1-4.8); LYMPHOCYTES % (AUTO) 1.4 % (21-51); MEAN CORPUSCULAR HEMOGLOBIN 34.3 PG (27.0-31.0); MEAN CORPUSCULAR HGB CONC 34.4 % (33.0-36.5); MEAN CORPUSCULAR VOLUME 99.8 FL (78-98); MEAN PLATELET VOLUME 8.3 FL (7.4-10.4); MONOCYTES # (AUTO) 0.2 X10'3 (0-0.9); MONOCYTES % (AUTO) 3.5 % (2-12); NEUTROPHILS # (AUTO) 5.2 X10'3 (1.8-7.7); NEUTROPHILS % (AUTO) 94.7 % (42-75); PLATELET COUNT 199 X10'3 (140-440); RED BLOOD COUNT 2.92 X10'6 (4.70-6.10); RED CELL DISTRIBUTION WIDTH 12.7 % (11.5-14.5); WHITE BLOOD COUNT 5.5 X10'3 (4.5-11.0)
[2018-02-07 09:03] LABS: ALANINE AMINOTRANSFERASE 29 U/L (12-78); ALBUMIN 2.7 G/DL (3.4-5.0); ALBUMIN/GLOBULIN RATIO 0.9 (1.1-1.5); ALKALINE PHOSPHATASE 56 IU/L (46-116); ANION GAP 13 (8-16); ASPARTATE AMINO TRANSFERASE 29 U/L (10-37); BILIRUBIN,TOTAL 0.6 MG/DL (0.1-1.0); BLOOD UREA NITROGEN 14 MG/DL (7-18); BUN/CREATININE RATIO 21.2 (5.4-32.0); CALCIUM 7.6 MG/DL (8.5-10.1); CHLORIDE 104 MMOL/L (99-107); CREATININE 0.66 MG/DL (0.60-1.10); GLUCOSE 80 MG/DL (70-104); POTASSIUM 3.2 MMOL/L (3.5-5.1); SODIUM 139 MMOL/L (135-145); TOTAL CARBON DIOXIDE 21.9 MMOL/L (24-32); TOTAL PROTEIN 5.8 G/DL (6.4-8.2); eGFR > 90 ML/MIN
[2018-02-07] MEDS: furosemide 20 MG/2 ML vial IV SCH ×2 (09:03→20:54)
[2018-02-07] MEDS: CITALOpram 10mg tablet PO SCH (09:04)
[2018-02-07] MEDS: atorvastatin 20mg tablet PO SCH (09:04)
[2018-02-07] MEDS: gemfibrozil 600mg tablet PO SCH ×2 (09:05→20:53)
--- NOTE | 2018-02-07 10:16 | NUR ---
Pt transferred off of unit for procedure in stable condition. Pt no longer on the floor.
[2018-02-07] MEDS ORDERED: fentaNYL/PF 50MCG/1 ML 2ML syringe ONE (10:31)
[2018-02-07] MEDS ORDERED: MIDAZolam 5mg/5ml vial ONE (10:32)
[2018-02-07] MEDS ORDERED: LIDOcaine Viscous 15ml cup ONE (10:32)
[2018-02-07] MEDS: clopidogrel 75mg tablet PO SCH (11:54)
[2018-02-07 12:15] LABS: BASOPHILS % (AUTO) 0.2 % (0-1); EOSINOPHILS % (AUTO) 0.1 % (0-6); HEMATOCRIT 32.7 % (42.0-52.0); HEMOGLOBIN 11.3 g/dl (14.0-17.9); LYMPHOCYTES # (AUTO) 0.2 X10'3 (1.1-4.8); LYMPHOCYTES % (AUTO) 3.1 % (21-51); MEAN CORPUSCULAR HEMOGLOBIN 34.3 PG (27.0-31.0); MEAN CORPUSCULAR HGB CONC 34.5 % (33.0-36.5); MEAN CORPUSCULAR VOLUME 99.3 FL (78-98); MONOCYTES # (AUTO) 0.1 X10'3 (0-0.9); MONOCYTES % (AUTO) 1.6 % (2-12); PLATELET COUNT 206 X10'3 (140-440); RED BLOOD COUNT 3.29 X10'6 (4.70-6.10); RED CELL DISTRIBUTION WIDTH 12.5 % (11.5-14.5); WHITE BLOOD COUNT 5.3 X10'3 (4.5-11.0)
[2018-02-07] MEDS: nitroGLYCERIN 0.1mg/hour patch TD SCH (17:57)
--- NOTE | 2018-02-07 18:52 | NUR ---
Patient in room PCU 3024. I have received report from Alicia TUBBS and had the opportunity to ask questions and assume patient care.
[2018-02-08 01:18] LABS: BASOPHILS % (AUTO) 0.2 % (0-1); EOSINOPHILS % (AUTO) 0.2 % (0-6); HEMATOCRIT 29.1 % (42.0-52.0); HEMOGLOBIN 10.1 g/dl (14.0-17.9); LYMPHOCYTES # (AUTO) 0.3 X10'3 (1.1-4.8); LYMPHOCYTES % (AUTO) 4.9 % (21-51); MEAN CORPUSCULAR HGB CONC 34.9 % (33.0-36.5); MEAN CORPUSCULAR VOLUME 100.3 FL (78-98); MEAN PLATELET VOLUME 8.2 FL (7.4-10.4); MONOCYTES # (AUTO) 0.6 X10'3 (0-0.9); MONOCYTES % (AUTO) 9.4 % (2-12); NEUTROPHILS % (AUTO) 85.3 % (42-75); PLATELET COUNT 183 X10'3 (140-440); RED CELL DISTRIBUTION WIDTH 12.4 % (11.5-14.5); WHITE BLOOD COUNT 5.9 X10'3 (4.5-11.0)
[2018-02-08 02:00] VITALS: BP 106/64
[2018-02-08] MEDS: pantoprazole 40MG/NS 100ML BAG 100 ML IV SCH ×2 (04:13→06:00)
[2018-02-08 05:49] LABS: ALANINE AMINOTRANSFERASE 28 U/L (12-78); ALBUMIN 2.7 G/DL (3.4-5.0); ALBUMIN/GLOBULIN RATIO 0.9 (1.1-1.5); ALKALINE PHOSPHATASE 57 IU/L (46-116); ANION GAP 11 (8-16); ASPARTATE AMINO TRANSFERASE 34 U/L (10-37); BILIRUBIN,TOTAL 0.4 MG/DL (0.1-1.0); BLOOD UREA NITROGEN 20 MG/DL (7-18); CALCIUM 7.7 MG/DL (8.5-10.1); CHLORIDE 102 MMOL/L (99-107); CREATININE 0.91 MG/DL (0.60-1.10); GLUCOSE 106 MG/DL (70-104); POTASSIUM 3.5 MMOL/L (3.5-5.1); SODIUM 138 MMOL/L (135-145); TOTAL CARBON DIOXIDE 24.9 MMOL/L (24-32); TOTAL PROTEIN 5.8 G/DL (6.4-8.2); eGFR 82 ML/MIN
[2018-02-08 06:00] VITALS: BP 123/62
--- NOTE | 2018-02-08 06:45 | NUR ---
Patient in room PCU 3024. I have received report from OSCAR TUBBS and had the opportunity to ask questions and assume patient care.
[2018-02-08] MEDS: docusate sod 100mg capsule PO SCH (06:50)
--- NOTE | 2018-02-08 06:52 | NUR ---
Problems reprioritized. Patient report given, questions answered & plan of care reviewed with Yanira TUBBS.
[2018-02-08] MEDS: gemfibrozil 600mg tablet PO SCH (07:37)
[2018-02-08] MEDS: clopidogrel 75mg tablet PO SCH (07:37)
[2018-02-08] MEDS: CITALOpram 10mg tablet PO SCH (07:37)
[2018-02-08] MEDS: atorvastatin 20mg tablet PO SCH (07:37)
[2018-02-08] MEDS: furosemide 20 MG/2 ML vial IV SCH (07:37)
[2018-02-08] MEDS: potassium Cl 20mEq in NS 1,000 ML IV SCH (07:42)
[2018-02-08] MEDS: nitroGLYCERIN 0.1mg/hour patch TD SCH (08:00)
--- NOTE | 2018-02-08 10:00 | NUR ---
PT DISCHARGED IN STABLE CONDITION. LEFT FACILITY IN PRIVATE VEHICLE WITH . 2 IV DC [facility]ULAS INTACT. ALL BELONGINGS IN HAND. FOLLOW UP INSTRUCTIONS GIVEN, ALL QUESTIONS ANSWERED. Addendum: 02/08/18 at 1006 by Isabel Arboleda RN Amended: Links added.
== END 2018-02-08 10:05 | disposition home or self-care (01) | DRG 380 ==
LOC: ER 18:38 → ED HOLD 21:04 → PCU 3S 22:51
PROVIDERS: ADMIT Family Medicine; ATTEND Internal Medicine
PROC: 30233L1 Transfusion of Nonautologous Fresh Plasma into Peripheral Vein, Percutaneous Approach (ICD-10-PCS; 2018-02-06)
PROC: 30233K1 Transfusion of Nonautologous Frozen Plasma into Peripheral Vein, Percutaneous Approach (ICD-10-PCS; 2018-02-06)
PROC: 30233R1 Transfusion of Nonautologous Platelets into Peripheral Vein, Percutaneous Approach (ICD-10-PCS; 2018-02-06)
PROC: 0DJ08ZZ Inspection of Upper Intestinal Tract, Via Natural or Artificial Opening Endoscopic (ICD-10-PCS; principal; 2018-02-07)
PROC: 30233N1 Transfusion of Nonautologous Red Blood Cells into Peripheral Vein, Percutaneous Approach (ICD-10-PCS; 2018-02-07)
DX: K22.11 Ulcer of esophagus with bleeding (principal); I21.A1 Myocardial infarction type 2; D62 Acute posthemorrhagic anemia; E78.00 Pure hypercholesterolemia, unspecified; E78.5 Hyperlipidemia, unspecified; E83.42 Hypomagnesemia; E87.6 Hypokalemia; F17.210 Nicotine dependence, cigarettes, uncomplicated; F32.9 Major depressive disorder, single episode, unspecified; F41.9 Anxiety disorder, unspecified; I11.0 Hypertensive heart disease with heart failure; I25.10 Atherosclerotic heart disease of native coronary artery without angina pectoris; I50.9 Heart failure, unspecified; I71.4 Abdominal aortic aneurysm, without rupture; J44.9 Chronic obstructive pulmonary disease, unspecified; K21.9 Gastro-esophageal reflux disease without esophagitis; K57.30 Diverticulosis of large intestine without perforation or abscess without bleeding; K80.20 Calculus of gallbladder without cholecystitis without obstruction; I25.2 Old myocardial infarction; Z95.5 Presence of coronary angioplasty implant and graft; Z79.899 Other long term (current) drug therapy; Z79.82 Long term (current) use of aspirin; Z87.11 Personal history of peptic ulcer disease; Z82.49 Family history of ischemic heart disease and other diseases of the circulatory system
CPT/HCPCS: 36415; 36430; 71045; 74176; 80053; 81001; 81003; 82272; 83690; 83735; 83880; 84443; 84484; 85025; 85610; 85730; 86880; 86885; 86900; 86901; 86920; 87070; 93005; 96374; 96375; 99152; 99285; A4620; C9113; G0378; J1200; J1940; J2250; J2930; J3010; J3490; J7030; P9016; P9035; P9059

== ENCOUNTER 2018-02-26 05:59 | Day surgery (SDC) | payer MEDICARE, MEDICAID ==
[2018-02-24 17:07] LABS: BASOPHILS # (AUTO) 0.1 X10'3 (0-0.2); BASOPHILS % (AUTO) 0.9 % (0-1); EOSINOPHILS # (AUTO) 0.1 X10'3 (0-0.9); EOSINOPHILS % (AUTO) 1.4 % (0-6); HEMATOCRIT 31.6 % (42.0-52.0); HEMOGLOBIN 10.7 g/dl (14.0-17.9); LYMPHOCYTES # (AUTO) 0.8 X10'3 (1.1-4.8); LYMPHOCYTES % (AUTO) 14.3 % (21-51); MEAN CORPUSCULAR HEMOGLOBIN 33.6 PG (27.0-31.0); MEAN PLATELET VOLUME 7.6 FL (7.4-10.4); MONOCYTES # (AUTO) 0.7 X10'3 (0-0.9); MONOCYTES % (AUTO) 11.8 % (2-12); NEUTROPHILS % (AUTO) 71.6 % (42-75); PLATELET COUNT 362 X10'3 (140-440); RED BLOOD COUNT 3.19 X10'6 (4.70-6.10); RED CELL DISTRIBUTION WIDTH 12.4 % (11.5-14.5); WHITE BLOOD COUNT 5.7 X10'3 (4.5-11.0)
[2018-02-24 17:15] LABS: ANION GAP 9 (8-16); BLOOD UREA NITROGEN 18 MG/DL (7-18); BUN/CREATININE RATIO 20.2 (5.4-32.0); CALCIUM 8.8 MG/DL (8.5-10.1); CHLORIDE 98 MMOL/L (99-107); CREATININE 0.89 MG/DL (0.60-1.10); GLUCOSE 106 MG/DL (70-104); POTASSIUM 3.5 MMOL/L (3.5-5.1); SODIUM 136 MMOL/L (135-145); TOTAL CARBON DIOXIDE 28.9 MMOL/L (24-32); eGFR 84 ML/MIN
[2018-02-24 17:21] LABS: INR 1.1 INR; PARTIAL THROMBOPLASTIN TIME 30 SECONDS (22-32); PROTHROMBIN TIME 10.8 SECONDS (9.0-12.0)
[2018-02-26] VITALS (13 sets, daily range): BP systolic 87–123; BP diastolic 47–71
[~2018-02-26] VITALS: Ht 167.6 cm; Wt 57.9 kg
[~2018-02-26 05:59] MED LIST changes: +LISI-600 PO; -LISI10TA4 PO
[2018-02-26] MEDS ORDERED: diphenhydrAMINE 25mg capsule PO PRN (06:15)
[2018-02-26] MEDS ORDERED: normal saline 1000ml 1,000 ML IV SCH (06:15)
[2018-02-26] MEDS ORDERED: LORazepam 0.5 MG tablet PO PRN (06:15)
[2018-02-26] MEDS ORDERED: heparin 25,000 UNIT/250ml bag 250 ML IV ONE (07:39)
[2018-02-26] MEDS ORDERED: LIDOcaine 1% (10mg/ml)w/preservative injection 20ml MDV ONE (07:39)
[2018-02-26] MEDS ORDERED: nitroGLYCERIN-Tridil 50MG/D5W 250 ML IV ONE (07:39)
[2018-02-26] MEDS ORDERED: heparin 1,000unit/ml 10ml vial 10 ML ONE (07:39)
[2018-02-26] MEDS ORDERED: iohexol 350 MG/1 ML 200ml bottle ONE ×2 (07:39→09:29)
[2018-02-26] MEDS ORDERED: midazolam 2 mg/2 ml injection ONE (07:40)
[2018-02-26] MEDS ORDERED: verapamil 2.5 mg/ml inj IV ONE (07:40)
[2018-02-26] MEDS ORDERED: fentaNYL/PF 50MCG/1 ML 2ML syringe ONE (07:40)
[2018-02-26] MEDS ORDERED: DOPamine 400mg/D5W 250ml 250 ML IV ONE (08:36)
[2018-02-26] MEDS ORDERED: amiodarone 50MG/ML inj IV ONE (08:43)
[2018-02-26] MEDS ORDERED: heparin 1,000 UNITS/NS 500ml 500 ML ONE (09:43)
[2018-02-26] MEDS ORDERED: clopidogrel 300mg tablet ONE (10:06)
[2018-02-26] MEDS ORDERED: proCHLORperazine 10 MG/2 ml inj IV PRN (10:50)
[2018-02-26] MEDS ORDERED: OXAZEpam 15mg capsule PO PRN (10:50)
[2018-02-26] MEDS ORDERED: HYDROcodone/acetaminophen 10/325mg tab PO PRN ×2 (10:50)
[2018-02-26] MEDS ORDERED: cyclobenzaprine 10mg tablet PO PRN (10:50)
[2018-02-26] MEDS ORDERED: aspirin 81mg tab.chew PO ONE (10:50)
[2018-02-26] MEDS ORDERED: magnesium hydroxide 30ml (MOM) UD suspension PO PRN (10:50)
[2018-02-26] MEDS ORDERED: acetaminophen 325mg tablet PO PRN (10:50)
[2018-02-26] MEDS ORDERED: docusate sod 100mg capsule PO SCH (20:00)
[2018-02-27] MEDS ORDERED: clopidogrel 75mg tablet PO SCH (08:00)
[2018-02-27] MEDS ORDERED: aspirin 325mg tablet PO SCH (08:30)
== END 2018-02-26 16:45 | disposition home or self-care (01) ==
LOC: SSTAY O 05:59
PROVIDERS: ATTEND Internal Medicine Cardiovascular Disease
DX: I25.118 Atherosclerotic heart disease of native coronary artery with other forms of angina pectoris (principal); E78.5 Hyperlipidemia, unspecified; J44.9 Chronic obstructive pulmonary disease, unspecified; I73.9 Peripheral vascular disease, unspecified; I25.2 Old myocardial infarction; M19.90 Unspecified osteoarthritis, unspecified site; I71.4 Abdominal aortic aneurysm, without rupture; I11.0 Hypertensive heart disease with heart failure; I50.9 Heart failure, unspecified; G47.33 Obstructive sleep apnea (adult) (pediatric); F41.8 Other specified anxiety disorders; Z95.5 Presence of coronary angioplasty implant and graft; Z79.82 Long term (current) use of aspirin; Z95.1 Presence of aortocoronary bypass graft; Z79.01 Long term (current) use of anticoagulants; Z87.11 Personal history of peptic ulcer disease; Z86.79 Personal history of other diseases of the circulatory system; Z90.49 Acquired absence of other specified parts of digestive tract; Z86.74 Personal history of sudden cardiac arrest; Z87.891 Personal history of nicotine dependence; Z87.01 Personal history of pneumonia (recurrent); Z79.899 Other long term (current) drug therapy; Z98.890 Other specified postprocedural states; Z82.49 Family history of ischemic heart disease and other diseases of the circulatory system
CPT/HCPCS: 36415; 80048; 85025; 85347; 85610; 85730; 93005; 99152; 99153; A6257; C1874; C9604; J0282; J1265; J1644; J2001; J2250; J3010; J7030; Q0163; Q9967; A4620; C1725; C1769; J3490

== ENCOUNTER 2020-04-12 13:50 | Emergency (ER) | payer MEDICARE ==
[~2020-04-12] VITALS: Ht 167.6 cm; Wt 55.0 kg
[~2020-04-12 13:50] MED LIST changes: -ASCO500C15 PO; +ASCO500C18 PO; +CLOP75TA34 PO; -CLOP75TA35 PO; -GEMF600T5 PO; +GEMF600T90 PO; -LISI-600 PO; +LISI20TA28 PO
[2020-04-12 13:55] VITALS: BP 122/73
== END 2020-04-12 16:24 | disposition home or self-care (01) ==
LOC: ER 13:51
DX: M70.21 Olecranon bursitis, right elbow (principal); I25.10 Atherosclerotic heart disease of native coronary artery without angina pectoris; E78.00 Pure hypercholesterolemia, unspecified; I10 Essential (primary) hypertension; I25.2 Old myocardial infarction; J44.9 Chronic obstructive pulmonary disease, unspecified; Z90.49 Acquired absence of other specified parts of digestive tract; Z98.61 Coronary angioplasty status; Z95.1 Presence of aortocoronary bypass graft; Z79.82 Long term (current) use of aspirin; Z79.899 Other long term (current) drug therapy; Y93.89 Activity, other specified
CPT/HCPCS: 73080; 99283

== ENCOUNTER 2021-05-24 07:19 | Day surgery (SDC) | payer MEDICARE ==
[2021-05-23 13:57] LABS: BASOPHILS # (AUTO) 0.1 X10'3 (0-0.2); BASOPHILS % (AUTO) 1.2 % (0-1); EOSINOPHILS # (AUTO) 0.3 X10'3 (0-0.9); EOSINOPHILS % (AUTO) 5.6 % (0-6); HEMATOCRIT 40.7 % (42.0-52.0); HEMOGLOBIN 13.7 g/dl (14.0-17.9); LYMPHOCYTES # (AUTO) 0.7 X10'3 (1.1-4.8); LYMPHOCYTES % (AUTO) 14.4 % (21-51); MEAN CORPUSCULAR HEMOGLOBIN 33.1 PG (27.0-31.0); MEAN CORPUSCULAR HGB CONC 33.6 g/dL (33.0-36.5); MEAN CORPUSCULAR VOLUME 98.7 FL (78-98); MEAN PLATELET VOLUME 7.6 FL (7.4-10.4); MONOCYTES # (AUTO) 0.4 X10'3 (0-0.9); MONOCYTES % (AUTO) 8.8 % (2-12); NEUTROPHILS # (AUTO) 3.3 X10'3 (1.8-7.7); PLATELET COUNT 272 X10'3 (140-440); RED BLOOD COUNT 4.12 X10'6 (4.70-6.10); RED CELL DISTRIBUTION WIDTH 13.4 % (11.5-14.5); WHITE BLOOD COUNT 4.7 X10'3 (4.5-11.0)
[2021-05-23 14:08] LABS: ALBUMIN 3.5 G/DL (3.4-5.0); ANION GAP 9 (8-16); BLOOD UREA NITROGEN 20 MG/DL (7-18); BUN/CREATININE RATIO 31.7 (5.4-32.0); CALCIUM 8.7 MG/DL (8.5-10.1); CHLORIDE 98 MMOL/L (99-107); CREATININE 0.63 MG/DL (0.60-1.10); GLUCOSE 98 MG/DL (70-104); POTASSIUM 3.6 MMOL/L (3.5-5.1); SODIUM 139 MMOL/L (135-145); TOTAL CARBON DIOXIDE 32.4 MMOL/L (24-32); eGFR > 90 ML/MIN
[2021-05-23 14:09] LABS: APTT 28 SECONDS (22-32)
[~2021-05-24] VITALS: Ht 167.6 cm; Wt 52.1 kg
[2021-05-24] VITALS (15 sets, daily range): BP systolic 109–145; BP diastolic 59–78
[~2021-05-24 07:19] MED LIST changes: -CITA10TA9 PO; +CITA10TA93 PO; +LOP25T PO; -METO25TA6 PO
[2021-05-24] MEDS ORDERED: normal saline 1,000 ML IV SCH (07:35)
[2021-05-24] MEDS ORDERED: diphenhydrAMINE 25mg capsule PO PRN (07:35)
[2021-05-24] MEDS ORDERED: LORazepam 0.5 MG tablet PO PRN (07:35)
[2021-05-24] MEDS ORDERED: BUDE10.27 PO (07:50)
[2021-05-24] MEDS ORDERED: fentaNYL/PF 50MCG/1 ML 2ML syringe ONE (09:55)
[2021-05-24] MEDS ORDERED: iohexol 350 MG/ML 50ML vial IV ONE ×2 (09:55→12:20)
[2021-05-24] MEDS ORDERED: verapamil 2.5 mg/ml inj IV ONE (09:55)
[2021-05-24] MEDS ORDERED: heparin 1,000unit/ml 10ml vial 10 ML ONE (09:55)
[2021-05-24] MEDS ORDERED: LIDOcaine 1% (10mg/ml)w/preservative inj. 20ml MDV ONE (09:55)
[2021-05-24] MEDS ORDERED: iohexol 350MG/ML 100ml bottle IV ONE ×3 (09:55→11:50)
[2021-05-24] MEDS ORDERED: nitroGLYCERIN-Tridil 50MG/D5W 250 ML IV ONE (09:55)
[2021-05-24] MEDS ORDERED: midazolam 1 mg/ML 2ml injection ONE (09:55)
[2021-05-24] MEDS ORDERED: heparin 25,000 UNIT/250ml bag 250 ML IV ONE (11:49)
[2021-05-24] MEDS ORDERED: heparin 1,000 UNITS/NS 500ml 500 ML ONE (11:50)
[2021-05-24] MEDS ORDERED: clopidogrel 300mg tablet ONE (12:24)
[2021-05-24] MEDS ORDERED: normal saline 1000ml 1,000 ML IV SCH ×2 (13:50→14:50)
[2021-05-24 14:39] LABS: ISTAT HGB ART 11.6 g/dl (14.0-18.0); ISTAT Hct ART 34 %PCV (42-52); ISTAT O2 SATURATION ARTERIAL 96 % (95-98); ISTAT SOURCE ART
[2021-05-24] MEDS ORDERED: ondansetron/PF 4mg/2ml inj IV PRN (14:50)
[2021-05-24] MEDS ORDERED: OXAZEpam 15mg capsule PO PRN (14:50)
[2021-05-24] MEDS ORDERED: proCHLORperazine 10 MG/2 ml inj IV PRN (14:50)
[2021-05-24] MEDS ORDERED: HYDROcodone/acetaminophen 5mg/325mg tablet PO PRN (14:50)
[2021-05-24] MEDS ORDERED: HYDROcodone/acetaminophen 10/325mg tab PO PRN (14:50)
[2021-05-24 16:25] LABS: ISTAT HGB ART 12.9 g/dl (14.0-18.0); ISTAT Hct ART 38 %PCV (42-52); ISTAT O2 SATURATION ARTERIAL 95 % (95-98); ISTAT SOURCE BLNK
[2021-05-24 16:26] LABS: ISTAT Hct MIX 38 %PCV (42-52); ISTAT O2 SATURATION MIX VENOUS 65 % (60-80); ISTAT SOURCE BLNK
[2021-05-24 16:27] LABS: ISTAT Hct MIX 34 %PCV (42-52); ISTAT O2 SATURATION MIX VENOUS 73 % (60-80); ISTAT SOURCE VEN
--- NOTE | 2021-05-24 18:00 | NUR ---
Assumed care of patient. Procedure site to right radial wrist stable with vascular band in place. Vital signs stable. Will continue to monitor.
[2021-05-25] MEDS ORDERED: clopidogrel 75mg tablet PO SCH (08:00)
== END 2021-05-24 20:00 | disposition home or self-care (01) ==
LOC: SSTAY O 07:19
PROVIDERS: ATTEND Internal Medicine Cardiovascular Disease
DX: R94.39 Abnormal result of other cardiovascular function study (principal); I25.719 Atherosclerosis of autologous vein coronary artery bypass graft(s) with unspecified angina pectoris; I27.20 Pulmonary hypertension, unspecified; J44.9 Chronic obstructive pulmonary disease, unspecified; F17.210 Nicotine dependence, cigarettes, uncomplicated; I10 Essential (primary) hypertension; M19.90 Unspecified osteoarthritis, unspecified site; I08.1 Rheumatic disorders of both mitral and tricuspid valves; E78.49 Other hyperlipidemia; E11.9 Type 2 diabetes mellitus without complications; Z87.11 Personal history of peptic ulcer disease; Z87.19 Personal history of other diseases of the digestive system; Z79.899 Other long term (current) drug therapy; Z79.01 Long term (current) use of anticoagulants; Z98.890 Other specified postprocedural states; Z83.3 Family history of diabetes mellitus
CPT/HCPCS: 36415; 76937; 80048; 82803; 85014; 85025; 85347; 85610; 85730; 93005; 93461; 93567; 99152; 99153; C1725; C1751; C1769; C1874; C1894; C9600; J1644; J2250; J3010; J3490; J7030; Q0163; Q9967; A4620; A6258

== ENCOUNTER 2022-10-06 12:39 | Emergency (ER) | payer MEDICARE, MEDICAID ==
[~2022-10-06] VITALS: Ht 160 cm; Wt 53.2 kg
[~2022-10-06 12:39] MED LIST changes: -ASPI-1265 PO; +BUDE10.27 PO; -CHOL400T14 PO; +OMEG-5 PO; -OMEG1CAP13 PO; -RANI-366 PO
[2022-10-06 12:55] VITALS: BP 131/59; PULSE 60; RESP 18; TEMP 97.7; O2SAT 93
[2022-10-06] MEDS ORDERED: CefTRIAXone 500MG IM Kit w/LIDOcaine IM ONE (13:55)
[2022-10-06] MEDS ORDERED: [UNRECOGNIZED DRUG - CODE] PO (14:02)
[2022-10-06 14:26] LABS: BILIRUBIN,URINE NEGATIVE (Neg); CLARITY,URINE CLEAR (Clear); COLOR,URINE YELLOW (Yellow); GLUCOSE, URINE NEGATIVE (Neg); KETONES,URINE NEGATIVE (Neg); LEUKOCYTE ESTERASE ,URINE TRACE (Neg); NITRITES, URINE NEGATIVE (Neg); OCCULT BLOOD,URINE TRACE-INTACT (Neg); PROTEIN,URINE NEGATIVE (Neg); UROBILINOGEN,URINE 0.2 E.U/dL (0.2-1.0)
[2022-10-06 14:30] LABS: UA COLLECTION TYPE VOIDED
[2022-10-06 14:31] LABS: RBC,URINE 0-2 /HPF (0-2); WBC,URINE 0-4 /HPF (0-4)
[2022-10-06 14:32] LABS: BACTERIA,URINE NONE SEEN /HPF (Neg); MUCUS STRANDS NONE SEEN /LPF (Neg); SQUAMOUS EPITHELIAL CELL,UR FEW /LPF (FEW)
[2022-10-09 09:47] LABS: CHLAMYDIA TRACHOMATIS, NAA Negative (Negative)
== END 2022-10-06 14:32 | disposition home or self-care (01) ==
LOC: ER 12:39
DX: N34.2 Other urethritis (principal); E78.00 Pure hypercholesterolemia, unspecified; I10 Essential (primary) hypertension; J44.9 Chronic obstructive pulmonary disease, unspecified; Z79.899 Other long term (current) drug therapy; Z98.890 Other specified postprocedural states
CPT/HCPCS: 36415; 81001; 87491; 87591; 96372; 99283; J0696

== ENCOUNTER 2024-03-07 00:40 | Emergency (ER) | payer MEDICARE, MEDICAID ==
[~2024-03-07] VITALS: Ht 167.6 cm; Wt 52.2 kg
[~2024-03-07 00:40] MED LIST changes: +[UNRECOGNIZED DRUG - CODE] PO
[2024-03-07 03:25] VITALS: PULSE 59
[2024-03-07] MEDS: bacitracin 15gm ointment TP ONE (04:38)
[2024-03-07 04:47] VITALS: BP 134/87; RESP 15; TEMP 98.5; O2SAT 99
== END 2024-03-07 04:49 | disposition home or self-care (01) ==
LOC: ER 00:41
DX: Z48.00 Encounter for change or removal of nonsurgical wound dressing (principal); E78.00 Pure hypercholesterolemia, unspecified; I10 Essential (primary) hypertension; J44.9 Chronic obstructive pulmonary disease, unspecified; I25.2 Old myocardial infarction; Z88.8 Allergy status to other drugs, medicaments and biological substances; Z87.11 Personal history of peptic ulcer disease; Z90.49 Acquired absence of other specified parts of digestive tract; Z95.1 Presence of aortocoronary bypass graft
CPT/HCPCS: 99284; A6258; A6402; A6449

== ENCOUNTER 2024-08-06 15:04 | Outpatient (CLI) | payer MEDICARE, MEDICAID ==
[~2024-08-06 15:04] MED LIST changes: +[UNRECOGNIZED DRUG - CODE] PO; -[UNRECOGNIZED DRUG - CODE] PO
--- NOTE | 2024-08-06 18:18 | RADIOLOGY REPORT ---
RENAL ULTRASOUND History: L RENAL MASS Comparison: None Technique: Multiple real-time sonographic images of the kidney and bladder were obtained in conjuncti on with Doppler imaging. Findings: The right kidney measures 9.5 cm and demonstrates no evidence of hydronephrosis, perinephric fluid co llection,. Numerous punctate echogenic foci which may represent nonobstructing calculi. The left kidney measures 9.7 cm and demonstrates no evidence of hydronephrosis, perinephric fluid co llection, or shadowing stone. Left renal lower pole cyst measuring 4.8 by 4.6 cm. Urinary bladder: Prevoid urinary bladder volume is 164 mL. Postvoid urinary bladder volume is 28 c c. Echogenic structure of the posterior bladder wall measuring 3 cm Impression: Left renal lower pole cystic appearing lesion measuring 4.8 cm. Recommend MRI abdomen with and witho ut contrast to evaluate to ensure that this is a simple cyst and not complex. Multiple echogenic right renal foci which could represent nonobstructing calculi. Posterior bladder wall echogenic lesion measuring 3 cm with differential considerations including enl arged prostate extending into the bladder, bladder mass. Recommend urology consultation for further e valuation.
== END 2024-08-06 23:59 | disposition home or self-care (01) ==
LOC: RAD 15:04
PROVIDERS: ATTEND Student in an Organized Health Care Education/Training Program
DX: N28.89 Other specified disorders of kidney and ureter (principal)
CPT/HCPCS: 76770